=== PATIENT | male | born 1965 | race Caucasian/White ===

== ENCOUNTER 2025-08-07 00:47 | Day surgery (SDC) | payer OTHER, SELFPAY ==
[2025-07-28 16:09] VITALS: BMI 34.8
[2025-08-07 11:52] VITALS: BP 150/77; PULSE 65; RESP 19; TEMP 36.6; O2SAT 98
[2025-08-07] MEDS: LACTATED RINGERS 1,000 ML 150 ML IV CONT (12:06)
--- NOTE | 2025-08-07 13:16 | WPDANESEPPF ---
Anes - Initial Pre Proc Eval Procedure: Operation Date: 08/07/25 13:00 Proposed Procedures p Screening Colonoscopy - Dimitris Machuca MD Date/Time: 08/07/25 13:16 Surgeon: Dimitris Machuca MD Pre Op Diagnosis: Personal history of colon polyps, unspecified Patient Data Age: 59 Gender: M Height: 1.75 m Weight: 108.5 kg Last Vital Signs Temp 36.6 C 08/07/25 11:52 Pulse 65 08/07/25 11:52 Resp 19 08/07/25 11:52 BP 150/77 H 08/07/25 11:52 Pulse Ox 98 08/07/25 11:52 O2 Del Method Room Air 08/07/25 11:52 Allergies Allergy/AdvReac Type Severity Reaction Status Date / Time No Known Allergies Allergy Verified 08/07/25 11:50 Home Medications ?Medication ?Instructions ?Recorded ?Confirmed ?Type amlodipine 10 mg tablet 10 mg PO DAILY 07/28/25 08/07/25 History aspirin 81 mg chewable tablet 81 mg PO BID 07/28/25 08/07/25 History (Aspirin Childrens) atorvastatin 10 mg tablet 10 mg PO DAILY 07/28/25 08/07/25 History clonidine HCl 0.1 mg tablet 0.1 mg PO DAILY 07/28/25 08/07/25 History dapagliflozin propanediol 10 mg 10 mg PO DAILY 07/28/25 08/07/25 History tablet (Farxiga) diclofenac sodium 75 mg 75 mg PO Q12H 07/28/25 08/07/25 History tablet,delayed release enalapril maleate 20 mg tablet 20 mg PO DAILY 07/28/25 08/07/25 History hydrochlorothiazide 25 mg tablet 25 mg PO DAILY 07/28/25 08/07/25 History metformin 1,000 mg tablet 1,000 mg PO BID 07/28/25 08/07/25 History omeprazole 20 mg capsule,delayed 20 mg PO DAILY PRN indigestion 07/28/25 07/28/25 History release semaglutide 2 mg/dose (8 mg/3 mL) 2 mg subcut WEEKLY 07/28/25 08/07/25 History subcutaneous pen injector (Ozempic) Laboratory Tests 08/07/25 12:02 POC Capillary Glucose 74 mg/dl (65-105) Patient hx anesthesia problems: none Family hx anesthesia problems: none Results Review: All pre-operative results and documents have been reviewed as part of the pre-operative evaluation. [facility] Social History Social History Years smoked: 20 Smoking status: Former smoker Tobacco type: cigarettes Alcohol intake: current Alcohol use details: Rarely Substance use type: does not use Living arrangements: with family Additional living arrangements comments: with sp [facility] - [facility] Final PreProcedure Day of Procedure 08/07/25 13:16 Patient weight: obese Heart: regular rate and rhythm Lungs: clear to auscultation Airway: Mallampati scale class II Neurological: alert and oriented Last oral intake: >/= 8 hours ASA classification: III Emergent: no Anesthetic plan: proceed Anesthesia type and monitoring: general GIVS and standard monitoring Results Review: All pre-operative results and documents have been reviewed as part of the pre-operative evaluation. Informed Consent: The patient's anesthetic plan and its attendant risks and benefits were discussed with the patient/family/POA. Questions were solicited and answers provided to the satisfaction of the patient/family/POA.
--- NOTE | 2025-08-07 13:29 | PM.IMHP ---
H&P: HPI History of Present Illness Date/Time: 08/07/25 13:29 Chief Complaint: History of colon polyps Narrative: The patient has a history of colonic polyps, the last colonoscopy was 5 years ago. Review of Systems Review of Systems: All systems reviewed & are unremarkable except as noted in HPI and below PMFSH Social History Social History Years smoked: 20 Smoking status: Former smoker Tobacco type: cigarettes Alcohol intake: current Alcohol use details: Rarely Substance use type: does not use Living arrangements: with family Additional living arrangements comments: with sp Meds Home Medications and Allergies Home Medications ?Medication ?Instructions ?Recorded ?Confirmed ?Type amlodipine 10 mg tablet 10 mg PO DAILY 07/28/25 08/07/25 History aspirin 81 mg chewable tablet 81 mg PO BID 07/28/25 08/07/25 History (Aspirin Childrens) atorvastatin 10 mg tablet 10 mg PO DAILY 07/28/25 08/07/25 History clonidine HCl 0.1 mg tablet 0.1 mg PO DAILY 07/28/25 08/07/25 History dapagliflozin propanediol 10 mg 10 mg PO DAILY 07/28/25 08/07/25 History tablet (Farxiga) diclofenac sodium 75 mg 75 mg PO Q12H 07/28/25 08/07/25 History tablet,delayed release enalapril maleate 20 mg tablet 20 mg PO DAILY 07/28/25 08/07/25 History hydrochlorothiazide 25 mg tablet 25 mg PO DAILY 07/28/25 08/07/25 History metformin 1,000 mg tablet 1,000 mg PO BID 07/28/25 08/07/25 History omeprazole 20 mg capsule,delayed 20 mg PO DAILY PRN indigestion 07/28/25 07/28/25 History release semaglutide 2 mg/dose (8 mg/3 mL) 2 mg subcut WEEKLY 07/28/25 08/07/25 History subcutaneous pen injector (Ozempic) Allergies Allergy/AdvReac Type Severity Reaction Status Date / Time No Known Allergies Allergy Verified 08/07/25 11:50 Vital Signs Vital Signs - 24 hr 08/07/25 11:52 Temperature 97.8 F Pulse Rate 65 Respiratory Rate 19 Blood Pressure 150/77 H Pulse Oximetry 98 Oxygen Delivery Room Air Exam Const: General: cooperative and healthy appearing Resp: Effort & Inspection: normal respiratory effort and able to speak in complete sentences Auscultation: clear to auscultation bilaterally Cardio: Rate: regular rate Rhythm: regular rhythm GI: Inspection: normal to inspection GI Palp: No No hepatosplenomegaly present Auscultation: normal bowel sounds Rectal Exam: deferred Skin: General skin exam: normal color Psych: Appearance: grossly normal Mental Status: mental status grossly normal Assessment and Plan Assessment and plan (1) History of colonic polyps: Code(s): Z86.0100 - Personal history of colon polyps, unspecified Status: Acute Assessment and Plan: The patient is deemed a good candidate for the procedure. Consent signed. Will proceed.
[2025-08-07 13:52] VITALS: BP 124/78; PULSE 70; RESP 29; O2SAT 98
[2025-08-07 14:02] VITALS: BP 129/84; PULSE 64; RESP 24; O2SAT 98
[2025-08-07 14:12] VITALS: BP 142/82; PULSE 62; RESP 22; O2SAT 100
== END 2025-08-07 14:24 | disposition home or self-care (01) ==
PROVIDERS: PCP Internal Medicine; Visit Provider Internal Medicine Gastroenterology
PROC: 0DJD8ZZ Inspection of Lower Intestinal Tract, Via Natural or Artificial Opening Endoscopic (ICD-10-PCS; CPT 45378; principal; 2025-08-07 13:00)
DX: Z12.11 Encounter for screening for malignant neoplasm of colon (principal); E66.9 Obesity, unspecified; Z68.35 Body mass index [BMI] 35.0-35.9, adult; Z79.82 Long term (current) use of aspirin; Z79.84 Long term (current) use of oral hypoglycemic drugs; Z79.85 Long-term (current) use of injectable non-insulin antidiabetic drugs; Z86.0100 Personal history of colon polyps, unspecified; Z87.891 Personal history of nicotine dependence
CPT/HCPCS: 45378; 82948; J2003; J2704; J7120